=== PATIENT | female | born 1985 | race Caucasian/White ===

== ENCOUNTER → 2017-04-12 | Outpatient (CLI) | payer BC ==
[~2017-04-12] MED LIST: FLUO10CA13 PO; IOHEXOL 240 MG/ML 50ML VIAL. ONE; IOHEXOL 300 MG/ML 75 ML VIAL. IV ONE; METF500T PO; SIMV10TA PO; SPIR100T2 PO
[2017-04-12 16:07] LABS: CREATININE 0.9 mg/dL (0.6-1.0); GFR 72.1
--- NOTE | 2017-04-12 17:38 | RAD ---
Indication: Left lower quadrant pain with bloating and weight gain. Technique: CT abdomen and pelvis with 75 mL of Omnipaque 300 with multi planar reformats. Comparison: None Findings: Heart is normal in size. No pericardial or pleural effusion. Clear lung bases. Diffuse hepatic steatosis. Liver is normal in morphology. No suspicious liver lesion. Spleen is not enlarged. No radiopaque gallstones. No pericholecystic fluid or gallbladder wall thickening. Pancreas is within normal limits. Right adrenal gland nodule measuring 2.3 x 1.9 cm (series 2 image 23). Left adrenal gland nodule measuring 2.9 x 1.6 cm (series 2 image 23). No nephrolithiasis or hydronephrosis. No suspicious renal lesion. No ascites. No retroperitoneal or pelvic adenopathy. No bowel obstruction. No abnormal bowel thickening or enhancement. Small omental fat-containing umbilical hernia. Status post appendectomy. Uterus is retroverted. Bilateral ovaries are visualized. Bladder show no focal lesion. No suspicious bony lesions. Probable follicles in the right ovary. Impression: 1. No acute findings. 2. Hepatic steatosis. 3. Bilateral adrenal gland nodules likely adenoma. Nonemergent MRI of the abdomen recommended for further evaluation. 4. Lobulated appearance of the right ovary may be secondary to cyst. Nonemergent ultrasound of the pelvis may be obtained if clinically indicated. PQRS Compliance Statement: One or more of the following individualized dose reduction techniques were utilized for this examination: 1. Automated exposure control 2. Adjustment of the mA and/or kV according to patient size 3. Use of iterative reconstruction technique
== END | disposition home or self-care (01) ==
LOC: CT 15:12
PROVIDERS: ATTEND Physician Assistant Medical
DX: R10.32 Left lower quadrant pain (principal); K76.0 Fatty (change of) liver, not elsewhere classified; I10 Essential (primary) hypertension; F17.200 Nicotine dependence, unspecified, uncomplicated; Z90.89 Acquired absence of other organs
CPT/HCPCS: 36415; 74177; 82565; 84520; Q9966; Q9967

== ENCOUNTER 2021-02-23 14:07 | Emergency (ER) | payer BC ==
[~2021-02-23] VITALS: Ht 170.2 cm; Wt 150.0 kg
[~2021-02-23 14:07] MED LIST changes: -IOHEXOL 240 MG/ML 50ML VIAL. ONE; -IOHEXOL 300 MG/ML 75 ML VIAL. IV ONE; -SPIR100T2 PO; +SPIR100T4 PO
[2021-02-23] MEDS ORDERED: IOHEXOL 300 MG/ML 75 ML VIAL. IV ONE (15:00)
[2021-02-23] MEDS ORDERED: CONTRAST GIVEN. MC PRN (15:00)
[2021-02-23 15:14] LABS: BASO # 0.1 x10^3/uL (0.0-0.2); BASO % 1 % (0-3); EOS # 0.4 x10^3/uL (0.0-0.7); EOS % 5 % (0-3); HEMATOCRIT 41.9 % (36.0-47.0); HEMOGLOBIN 14.1 g/dL (12.0-15.5); LYMPH # 2.9 x10^3/uL (1.0-4.8); LYMPH % 35 % (24-48); MEAN CORPUSCULAR HEMOGLOBIN 29 pg (25-35); MEAN CORPUSCULAR HGB CONC 34 g/dL (31-37); MEAN CORPUSCULAR VOLUME 85 fL (79-100); MONO # 0.5 x10^3/uL (0.0-1.1); MONO % 6 % (0-9); NEUT # 4.5 x10^3uL (1.8-7.7); NEUT % 54 % (31-73); PLATELET COUNT 322 x10^3/uL (140-400); RED BLOOD COUNT 4.93 x10^6/uL (3.50-5.40); WHITE BLOOD COUNT 8.3 x10^3/uL (4.0-11.0)
[2021-02-23 15:19] LABS: CALCIUM 8.9 mg/dL (8.5-10.1); CREATININE 0.8 mg/dL (0.6-1.0); GFR 80.7; POTASSIUM 3.9 mmol/L (3.5-5.1)
--- NOTE | 2021-02-23 15:19 | PHYS DOC ---
Past History Past Medical History: Asthma, High Cholesterol, Hypertension Additional Past Medical Histor: adrenal adenoma, PCOS, endometriosis, IBS-D (NORBERTO FRAZIER APRN) Past Surgical History: Other Additional Past Surgical Histo: ovarian cyst, pitituitary drain, kidney cyst, verterbtal, ankle (NORBERTO FARZIER APRN) Smoking: Less than 1pk/day Alcohol Use: None Drug Use: None (NORBERTO FRAZIER APRN) General Adult EDM: Chief Complaint: MULTIPLE COMPLAINTS HPI: HPI: Patient is a 35-year-old female that presents today with a multitude of complaints. Patient states that she has been having finger numbness and tingling mostly in the left hand the fifth and fourth finger being involved, patient states this has been coming and going and there is no rhyme or reason. 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 Patient also having some chest pain, patient was seen last week and her primary care's office was told her cholesterol was very high and had a change in her medication from simvastatin to Crestor at that time. Patient in for blood pressure was very high and her blood pressure medications were changed she is unsure of what was changed. She currently takes spironolactone 100 mg, Crestor, and other unknown medications for blood hypertension. (NORBERTO FRAZIER APRN) Review of Systems: Review of Systems: Constitutional: Denies fever or chills Eyes: Denies change in visual acuity HENT: Denies nasal congestion or sore throat Respiratory: Denies cough or shortness of breath Cardiovascular: chest pain GI: Denies abdominal pain, nausea, vomiting, bloody stools or diarrhea : Denies dysuria Musculoskeletal: left sided neck pain, left fingers tingling Integument: Denies rash Neurologic: headache, denies focal weakness or sensory changes Endocrine: Denies polyuria or polydipsia Lymphatic: Denies swollen glands Psychiatric: Denies depression or anxiety (NORBERTO FRAZIER APRN) Current Medications: Current Meds: Current Medications Medications (Trade) Dose Ordered Sig/Beverley Start Time Stop Time Status Last Admin Dose Admin Info (Do NOT chart on this entry -- for MONITORING) 1 each PRN DAILY PRN 02/23/21 15:00 02/25/21 14:59 Iohexol (Omnipaque 300 Mg/ml) 75 ml 1X ONCE 02/23/21 15:00 02/23/21 15:01 DC (NORBERTO FRAZIER APRN) Allergies: Allergies: Allergies Coded Allergies Type Severity Reaction Last Updated Verified morphine Allergy Unknown 02/23/21 Yes (NORBERTO FRAZIER APRN) Physical Exam: PE: Constitutional: Well developed, well nourished, no acute distress, non-toxic appearance. [] HENT: Normocephalic, atraumatic, bilateral external ears normal, oropharynx moist, no oral exudates, nose normal. [] Eyes: PERRLA, EOMI, conjunctiva normal, no discharge. [] Neck: Normal ROM, tenderness to left side of neck, no carotid bruit noted, [] Cardiovascular:Heart rate regular rhythm, no murmur [] Lungs & Thorax: Bilateral breath sounds clear to auscultation , heart tone normal] Abdomen: Bowel sounds normal, soft, no tenderness, no masses, no pulsatile masses. [] Skin: Warm, dry, no erythema, no rash. [] Back: No tenderness, no CVA tenderness. 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 [] (NORBERTO FRAZIER APRN) Current Patient Data: Labs: Laboratory Tests Test 02/23/21 14:52 02/23/21 14:53 White Blood Count 8.3 x10^3/uL Red Blood Count 4.93 x10^6/uL Hemoglobin 14.1 g/dL Hematocrit 41.9 % Mean Corpuscular Volume 85 fL Mean Corpuscular Hemoglobin 29 pg Mean Corpuscular Hemoglobin Concent 34 g/dL Red Cell Distribution Width 14.0 % Platelet Count 322 x10^3/uL Neutrophils (%) (Auto) 54 % Lymphocytes (%) (Auto) 35 % Monocytes (%) (Auto) 6 % Eosinophils (%) (Auto) 5 % Basophils (%) (Auto) 1 % Neutrophils # (Auto) 4.5 x10^3uL Lymphocytes # (Auto) 2.9 x10^3/uL Monocytes # (Auto) 0.5 x10^3/uL Eosinophils # (Auto) 0.4 x10^3/uL Basophils # (Auto) 0.1 x10^3/uL Sodium Level 139 mmol/L Potassium Level 3.9 mmol/L Chloride Level 102 mmol/L Carbon Dioxide Level 27 mmol/L Anion Gap 10 Blood Urea Nitrogen 10 mg/dL Creatinine 0.8 mg/dL Estimated GFR (Cockcroft-Gault) 80.7 BUN/Creatinine Ratio 13 Glucose Level 95 mg/dL Calcium Level 8.9 mg/dL Total Bilirubin 0.2 mg/dL Aspartate Amino Transf (AST/SGOT) 15 U/L Alanine Aminotransferase (ALT/SGPT) 32 U/L Alkaline Phosphatase 78 U/L Troponin I Quantitative < 0.017 ng/mL Total Protein 7.0 g/dL Albumin 3.6 g/dL Albumin/Globulin Ratio 1.1 Urine Test Negative Current Medications Medications (Trade) Dose Ordered Sig/Beverley Route PRN Reason Start Time Stop Time Status Last Admin Dose Admin Iohexol (Omnipaque 300 Mg/ml) 75 ml 1X ONCE IV 02/23/21 15:00 02/23/21 15:01 DC 02/23/21 15:12 Info (Do NOT chart on this entry -- for MONITORING) 1 each PRN DAILY PRN MC SEE COMMENTS 02/23/21 15:00 02/25/21 14:59 Vital Signs: Vital Signs Date Time Temp Pulse Resp B/P (MAP) Pulse Ox O2 Delivery O2 Flow Rate FiO2 02/23/21 14:16 98.6 86 18 183/99 (127) 96 Room Air (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 Celeste at 1530 no STEMI is noted interpretation shows normal sinus rhythm without ectopy [] (NORBERTO FRAZIER JEWEL CORNER BRUSHING MACHINE OPERATOR) Radiology/Procedures: Radiology/Procedures: PROCEDURE: CT HEAD WO/W CONTRAST CT HEAD WITHOUT AND WITH IV CONTRAST History: Headache. Pituitary cyst. Comparison: None. Technique: Pre and post intravenous contrast CT imaging was performed of the head. Findings: No intracranial hemorrhage. No mass effect. No hydrocephalus. No evidence of acute territorial infarction. No abnormal enhancement. Imaged orbits are unremarkable. Imaged paranasal sinuses and mastoid air cells are clear. The scalp and calvarium are unremarkable. Impression: 1. No acute intracranial abnormality. ----- Exposure: One or more of the following individualized dose reduction techniques were utilized for this examination: 1. Automated exposure control 2. Adjustment of the mA and/or kV according to patient size 3. Use of iterative reconstruction technique. Electronically signed by: Thai Hobbs MD (02/23/2021 3:36 PM) [id number] PROCEDURE: CHEST AP ONLY AP chest. HISTORY: Chest pain AP view was taken of the chest. Lungs are clear. Heart is normal in size. There is no pleural effusion. IMPRESSION: 1. No acute chest disease. Electronically signed by: Inocente Vanegas MD (02/23/2021 3:19 PM) [facility] (NORBERTO FRAZIER APRN) Heart Score: C/O Chest Pain: Yes HEART Score for Chest Pain: HEART Score for Chest Pain Response (Comments) Value History Moderately Suspicious 1 Age < 45 0 Risk Factors >3 Risk Factors or Hx CAD 2 Troponin < Normal Limit 0 Total 3 Risk Factors: Risk Factors: DM, Current or recent (<one month) smoker, HTN, HLP, family history of CAD, obesity. Risk Scores: Score 0 - 3: 2.5% MACE over next 6 weeks - Discharge Home Score 4 - 6: 20.3% MACE over next 6 weeks - Admit for Clinical Observation Score 7 - 10: 72.7% MACE over next 6 weeks - Early Invasive Strategies (NORBERTO FRAZIER APRN) Course & Med Decision Making: Course & Med Decision Making Pertinent Labs and Imaging studies reviewed. (See chart for details) 1550 heart rate 85 blood pressure 154/60 patient denies chest pain, only having a slight headache patient states numbness and tingling in her fingers is gone. Spoke at length with patient regarding lab results and radiology results. Informed patient that I would like to discharge home, she agrees with plan of care and verbalized understanding of the strict return precautions. [] (NORBERTO FRAZIER APRN) Dragon Disclaimer: Dragon Disclaimer: This electronic medical record was generated, in whole or in part, using a voice recognition dictation system. (NORBERTO FRAZIER APRN) Departure Departure: Impression: Primary Impression: Chest discomfort Additional Impression: Paresthesia of finger Disposition: HOME / SELF CARE / HOMELESS Condition: STABLE Referrals: ALY BRENNER (PCP) Patient Instructions: Chest Pain (Nonspecific) Additional Instructions: Continue current medications Tylenol and/or ibuprofen as needed for pain Follow-up with your primary care physician for further imaging of your neck for the paresthesia in the fourth and fifth fingers. Return to the emergency department for increased chest pain, shortness of breath, increased paresthesia in hands, and strokelike symptoms PERC Rule for PE PERC Rule for PE Response (Comments) Value Age > 50: No 0 HR > 100: No 0 Sa02 on room air <95%: No 0 Unilateral leg swelling: No 0 Hemoptysis: No 0 Recent surgery or trauma: No 0 Prior PE or DVT: No 0 Hormone use: No 0 Total 0 Attending Signature Attending Signature I have reviewed the PA/CHARGE ENTRY's note and plan of care. I was available for consultation as needed during the patient's visit in the emergency department. I agree with the clinical impression, plan, and disposition. (SRIRAM CELESTE DO) NORBERTO FRAZIER APRN Feb 23, 2021 15:19 SRIRAM CELESTE DO Feb 24, 2021 01:33
--- NOTE | 2021-02-23 15:22 | RAD ---
AP chest. HISTORY: Chest pain AP view was taken of the chest. Lungs are clear. Heart is normal in size. There is no pleural effusio n. IMPRESSION: 1. No acute chest disease. Electronically signed by: Inocente Vanegas MD (02/23/2021 3:19 PM) [facility]
[2021-02-23 15:25] LABS: ALBUMIN 3.6 g/dL (3.4-5.0); ALBUMIN/GLOBULIN RATIO 1.1 (1.0-1.7); TOTAL BILIRUBIN 0.2 mg/dL (0.2-1.0)
--- NOTE | 2021-02-23 15:27 | EKG ---
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
[2021-02-23 15:29] LABS: U PREG PATIENT NEGATIVE (NEG)
--- NOTE | 2021-02-23 15:39 | RAD ---
CT HEAD WITHOUT AND WITH IV CONTRAST History: Headache. Pituitary cyst. Comparison: None. Technique: Pre and post intravenous contrast CT imaging was performed of the head. Findings: No intracranial hemorrhage. No mass effect. No hydrocephalus. No evidence of acute territorial infar ction. No abnormal enhancement. Imaged orbits are unremarkable. Imaged paranasal sinuses and mastoid air cells are clear. The scalp a nd calvarium are unremarkable. Impression: 1. No acute intracranial abnormality. ----- Exposure: One or more of the following individualized dose reduction techniques were utilized for thi s examination: 1. Automated exposure control 2. Adjustment of the mA and/or kV according to patient size 3. Use of iterative reconstruction technique. Electronically signed by: Thai Hobbs MD (02/23/2021 3:36 PM) [id number]
[2021-02-23 16:40] VITALS: BP 132/93
== END 2021-02-23 16:44 | disposition home or self-care (01) ==
LOC: ER 14:07
DX: R07.89 Other chest pain (principal); R20.2 Paresthesia of skin; R51.9 Headache, unspecified; M54.2 Cervicalgia; J45.909 Unspecified asthma, uncomplicated; E78.00 Pure hypercholesterolemia, unspecified; I10 Essential (primary) hypertension; F17.200 Nicotine dependence, unspecified, uncomplicated; Z88.5 Allergy status to narcotic agent
CPT/HCPCS: 36415; 70470; 71045; 80053; 81025; 84484; 85025; 93005; 99285; Q9967